=== PATIENT | female | born 1995 | race Two or more races ===

== ENCOUNTER 2019-10-17 22:04 | Emergency (ER) | payer OTHER ==
[2019-10-17 22:25] VITALS: BP 118/72; PULSE 72; TEMP 98; BMI 20.5
--- NOTE | 2019-10-17 22:28 | PDOC ---
History of Present Illness - General Chief Complaint: Lightheaded Stated Complaint: ABDOMINAL PAIN Time Seen by Provider: 10/17/19 22:26 History Source: Patient Exam Limitations: No Limitations - History of Present Illness Initial Comments: 10/17/19 22:27 Cecilia Hopper is a 24F with PMH asthma and depression on sertraline presenting with abdominal pain and vertigo. Yesterday patient felt well, but in the evening started feeling upset stomach. Today woke up late, didn't eat breakfast. 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 Dizziness worse when her eyes are open and has some photophobia with headache. Went home, was nauseated and vomited NBNB 3x. Never had these symptoms before. Denies tinnitis, vision changes. Has not had a BM in a few days, 1x urine output today. PSH multiple hernia repairs since childhood and a tummy tuck surgery. Started taking sertraline on Monday, did not take this AM, has not had a bad reaction in prior days. Smokes marijuana regularly, last this AM, has not had vomiting or dizziness related to use in the past. Denies fever/chills, C/D. LOWE described as frontal and slow onset, similar to prior LOWE. Poor urinary output, has not tolerated anything PO today. Denies sick contacts. Past History - Past Medical History Allergies/Adverse Reactions: Allergies Allergy/AdvReac Type Severity Reaction Status Date / Time No Known Allergies Allergy Verified 10/17/19 22:07 Home Medications: Ambulatory Orders Meclizine HCl [Antivert -] 12.5 mg PO TID #21 tablet 10/18/19 Meclizine HCl [Antivert -] 12.5 mg PO TID #21 tablet 10/18/19 COPD: No Psychiatric Problems: Yes - Psycho Social/Smoking Cessation Hx Smoking History: Never smoked Review of Systems - Review of Systems Able to Perform ROS?: Yes Constitutional: Yes: Loss of Appetite. No: Chills, Fever, Weakness HEENTM: No: Blurred Vision, Recent change in vision, Double Vision, Hearing Loss Respiratory: No: Symptoms reported Cardiac (ROS): No: Symptoms Reported ABD/GI: Yes: Nausea, Vomiting, Abdominal cramping. No: Constipated, Diarrhea : Yes: Other (poor urinary output) Musculoskeletal: No: Symptoms Reported Integumentary: No: Symptoms Reported Neurological: Yes: Headache (frontal) Psychiatric: Yes: Depression (on sertraline) Endocrine: No: Symptoms Reported Hematologic/Lymphatic: No: Symptoms Reported All Other Systems: Reviewed and Negative *Physical Exam - Vital Signs Last Vital Signs Temp Pulse Resp BP Pulse Ox 98 F 72 16 118/72 99 10/17/19 22:09 10/17/19 22:09 10/17/19 22:09 10/17/19 22:09 10/17/19 22:09 - Physical Exam General Appearance: Yes: Nourished, Appropriately Dressed, Mild Distress, Thin, Other (resting in bed in kylah position with hutchison up to cover eyes) HEENT: positive: EOMI (no nystagmus noted), KASHIF, Normal ENT Inspection, Normal Voice, Symmetrical, Photophobia, Hearing Grossly Normal. negative: Scleral Icterus (R), Scleral Icterus (L), Muffled/Hoarse voice Neck: positive: Trachea midline, Normal Thyroid, Supple. negative: Tender, Rigid, Lymphadenopathy (R), Lymphadenopathy (L) Respiratory/Chest: positive: Lungs Clear, Normal Breath Sounds. negative: Chest Tender, Respiratory Distress, Accessory Muscle Use, Labored Respiration, Crackles, Rales, Rhonchi, Stridor, Wheezing Cardiovascular: positive: Regular Rhythm, Regular Rate. negative: Murmur Gastrointestinal/Abdominal: positive: Normal Bowel Sounds, Tender (epigastric), Flat, Soft. negative: Organomegaly, Pulsatile Mass, Increased Bowel Sounds, Guarding, Rebound Musculoskeletal: positive: Normal Inspection. negative: CVA Tenderness, Vertebral Tenderness Extremity: positive: Normal Capillary Refill, Normal Inspection, Normal Range of Motion, Pelvis Stable. negative: Tender Integumentary: positive: Normal Color, Dry, Warm. negative: Clammy Neurologic: positive: perinatal educator II-XII NML intact, Fully Oriented, Alert, Normal Mood/ Affect, Normal Response, Motor Strength 5/5, Other (cerebellar exam: finger/ nose normal, heel/quiñonez normal, no nystagmus, no dysarthria, no dysdiadochokinesia, no truncal ataxia) ED Treatment Course - LABORATORY CBC & Chemistry Diagram: 10/17/19 23:00 10/17/19 23:00 Medical Decision Making - Medical Decision Making 10/17/19 22:27 Cecilia Hopper is a 24F with PMH asthma and depression on sertraline presenting with abdominal pain and vertigo. Vertigo with N/V is consistent with BPPV vs. Menieres, worse when patient's eyes open and when she sits up, no truncal ataxia or nystagmus. Posterior CVA unlikely, no risk factors or neuro deficits. Patient is afebrile, mild LOWE, low concern for encephalitis. Newly taking sertraline, concern for common adverse reaction. Also considering marijuana-induced nausea, but patient has not had these sx before when smoking. CMP CBC UA Serum Preg Mag/Phos Giving 1L NS, meclizine, Pepcid, Maalox for N/V with vertigo, Ofirmev for LOWE. 10/17/19 23:31 Labs unremarkable, test negative. 10/18/19 00:31 Patient ambulating without issue, is hungry, has no more vertigo. However, still has abd pain with hernia. Concerned for incarceration. Hernia is soft but tender and mobile. CTAP ordered with PO contrast. 10/18/19 04:34 CT shows no evidence of hernia, concern for an abscess. Patient examined, umbilical lump more consistent with asymptomatic cyst, patient not bothered by it, no fever or WBC elevation. Given 4mg Zofran, PO challenge passed with crackers and water. Stable for d/c home with PRN meclizine. Discharge - Discharge Information Problems reviewed: Yes Clinical Impression/Diagnosis: Vertigo Nausea & vomiting Qualifiers: Vomiting type: unspecified Vomiting Intractability: non-intractable Qualified Code(s): R11.2 - Nausea with vomiting, unspecified Condition: Stable Disposition: HOME - Admission No - Additional Discharge Information Prescriptions: Meclizine HCl [Antivert -] 12.5 mg PO TID #21 tablet Meclizine HCl [Antivert -] 12.5 mg PO TID #21 tablet - Follow up/Referral - Patient Discharge Instructions Patient Printed Discharge Instructions: DI for Vertigo Additional Instructions: Today you were evaluated for vertigo. Your blood labs show no electrolyte abnormalities, anemia, or infection. Your urine shows no infection. We gave you IV fluids, Pepcid, Maalox, and Meclizine for nausea and you felt better. We were worried about a hernia in your abdomen, and found that you do not have a hernia, but rather a cyst after your surgeries that is not a problem. Please follow-up with your primary doctor in the next 3 days for further care. If you continue to have dizziness while taking the sertraline, consider seeing your primary doctor for evaluation of an adverse reaction. Please stop smoking marijuana if it is causing you to feed nauseated. If you experience worsening nausea, vomiting, chest pain, fever, trouble breathing, or have any other new or concerning symptoms, please return to the emergency room. - Post Discharge Activity
--- NOTE | 2019-10-17 22:40 | PDOC ---
Attending Attestation - Resident Resident Name: Omar Mahan - ED Attending Attestation I have performed the following: I have examined & evaluated the patient, The case was reviewed & discussed with the resident, I agree w/resident's findings & plan, Exceptions are as noted - HPI HPI: 10/17/19 22:41 Ms. Oli Hopper is 24 yo F ho asthma and depression who presents to the ER with vertigo, nausea and vomiting Last night, she began to have abdominal discomfort/upset She was driving to the store and developed severe vertigo, worse with eyes open She had to loop puller her vehicle She has since had persistent nausea, vomiting, inability to tolerate po Pt has not eaten today, has voided once today No bowel movements, no gas No fevers or chills No ill contacts No vision changes No weakness or numbness Pt has had also a frontal headache associated with dizziness 10/17/19 23:58 - Physicial Exam PE: 10/17/19 22:40 GENERAL: The patient is in no acute distress, resting comfortably in bed. ENT: Ears normal, nares patent, oropharynx clear without exudates. Dry mucous membranes. NECK: Normal range of motion, supple LUNGS: Breath sounds equal, clear to auscultation bilaterally. No wheezes, and no crackles. HEART:Regular rate and rhythm, normal S1 and S2 without murmur, rub or gallop. ABDOMEN: Soft, non distended, periumbilical tenderness to palpation, no ventral hernia palpable Scarring noted of the umbilicus hypoactive bowel sounds. No CVA tenderness to palpation EXTREMITIES: Normal range of motion, no edema. NEUROLOGICAL: Cranial nerves II through XII grossly intact. Normal speech. No focal neurological deficits. No dysdiadokinesis, no dysmetria, no nystagmus Pt did not want to stand yet due to persistent dizziness SKIN: Warm, Dry, normal turgor, no rashes or lesions noted. 10/17/19 23:37 10/18/19 00:01 10/18/19 00:03 - Medical Decision Making 24 yo F presenting to the ER with a complaint of abdominal pain, vomiting, dizziness and vertigo DD is broad and includes Dizziness - peripheral vertigo, menier's disease, labrynthitis, BPPV GI symptoms - gastritis, gastroenteritis, SBO, ileus, cholelithiasis, pancreatitis 10/17/19 23:37 Laboratory Tests 10/17/19 23:00 WBC 6.2 Hgb 13.8 Hct 41.0 Plt Count 213 10/18/19 00:02 10/18/19 00:05 10/18/19 00:08 10/18/19 00:08 Laboratory Tests 10/17/19 10/17/19 23:00 23:00 BUN 10.9 Creatinine 0.7 Serum , Qual Negative Signed out to Dr. Bailon Pending CT and PO challenge
[2019-10-17] MEDS ORDERED: SODIUM CHLORIDE 0.9% 500 ML INFUS.BAG IV ONE (22:50)
[2019-10-17] MEDS ORDERED: FAMOTIDINE 20 MG/50 ML IVPB 20 MG/50 ML MG IVPB ONE ×2 (22:50→23:26)
[2019-10-17] MEDS ORDERED: MECLIZINE HCL 12.5 MG TABLET PO ONE (22:50)
[2019-10-17 23:16] LABS: BASO % 0.8 % (0-2.0); EOS % 0.2 % (0-4.5); HEMOGLOBIN 13.8 GM/dL (10.7-15.3); LYMPH % 21.7 % (8-40); MCH 32.2 pg (25.7-33.7); MCHC 33.6 g/dl (32.0-36.0); MEAN PLT VOLUME 10.3 fl (7.5-11.1); MONO % 4.6 % (3.8-10.2); NEUT % 72.7 % (42.8-82.8); PLATELET COUNT 213 K/MM3 (134-434); RBC 4.27 M/mm3 (3.60-5.2); RDW 13.2 % (11.6-15.6); WHITE BLOOD COUNT 6.2 K/mm3 (4.0-10.0)
[2019-10-17] MEDS ORDERED: MECLIZINE HCL 12.5 MG TABLET ONE (23:26)
[2019-10-17 23:44] LABS: ALBUMIN 4.2 g/dl (3.4-5.0); BILIRUBIN,TOTAL 0.4 mg/dL (0.2-1); BLOOD UREA NITROGEN 10.9 mg/dL (7-18); CALCIUM 9.6 mg/dL (8.5-10.1); CREATININE 0.7 mg/dL (0.55-1.3); MAGNESIUM 2.3 mg/dL (1.8-2.4); POTASSIUM 4.2 mmol/L (3.5-5.1); TOT PROT 8.1 g/dl (6.4-8.2)
[2019-10-18] MEDS ORDERED: ACETAMINOPHEN 1000 MG/100 ML VIAL (NON FORMULARY) IVPB ONE (00:01)
[2019-10-18] MEDS ORDERED: ACETAMINOPHEN 325 MG TABLET (FP) PO ONE (01:22)
[2019-10-18] MEDS ORDERED: ONDANSETRON 4 MG/2 ML VIAL IVPUSH ONE (03:24)
[2019-10-18] MEDS ORDERED: ONDANSETRON 4 MG/2 ML VIAL ONE (04:01)
== END 2019-10-18 04:45 | disposition home or self-care (01) ==
LOC: JER 22:04
PROC: 3E033GC Introduction of Other Therapeutic Substance into Peripheral Vein, Percutaneous Approach (ICD-10-PCS; principal; 2019-10-17)
DX: J45.909 Unspecified asthma, uncomplicated (principal); F99 Mental disorder, not otherwise specified
CPT/HCPCS: 36415; 74177-TC; 80053; 83735; 84100; 84703; 85025; 99283-25

== ENCOUNTER 2020-11-26 14:26 | Inpatient (IN) | payer OTHER ==
[2020-11-26] MEDS ORDERED: ACETAMINOPHEN 325 MG TABLET (FP) PO ONE (17:24)
[2020-11-26] MEDS ORDERED: ACETAMINOPHEN 325 MG TABLET (FP) ONE (17:33)
[2020-11-26] MEDS ORDERED: LACTATED RINGERS SOLUTION 1000 ML INFUS.BAG IV ONE (18:07)
[2020-11-26 18:09] LABS: BASO % 0.3 % (0-2.0); EOS % 0.7 % (0-4.5); HEMATOCRIT 36.2 % (32.4-45.2); HEMOGLOBIN 11.8 GM/dL (10.7-15.3); LYMPH % 25.1 % (8-40); MCH 31.2 pg (25.7-33.7); MCHC 32.7 g/dl (32.0-36.0); MEAN CELL VOLUME 95.5 fl (80-96); MEAN PLT VOLUME 11.7 fl (7.5-11.1); MONO % 8.6 % (3.8-10.2); NEUT % 65.3 % (42.8-82.8); RBC 3.79 M/mm3 (3.60-5.2); WHITE BLOOD COUNT 4.3 K/mm3 (4.0-10.0)
[2020-11-26 18:19] LABS: INR 1.15 (0.83-1.09); PROTHROMBIN TIME (PATIENT) 13.8 SEC (9.7-13.0)
[2020-11-26 18:22] LABS: ACTIVATED PTT 34.1 SECONDS (25.2-36.5)
[2020-11-26 18:42] LABS: POTASSIUM 4.5 mmol/L (3.5-5.1)
[2020-11-26 18:44] LABS: CALCIUM 8.9 mg/dL (8.5-10.1)
[2020-11-26 18:45] LABS: ALBUMIN 3.4 g/dl (3.4-5.0); BLOOD UREA NITROGEN 9.2 mg/dL (7-18)
[2020-11-26 18:48] LABS: CREATININE 0.6 mg/dL (0.55-1.3)
[2020-11-26 18:49] LABS: BILIRUBIN,TOTAL 0.2 mg/dL (0.2-1); TOT PROT 7.2 g/dl (6.4-8.2)
[2020-11-26 19:02] LABS: PLATELET COUNT 104 K/MM3 (134-434)
[2020-11-26] MEDS ORDERED: morphine CARPU-JECT 4 MG/1 ML DISP.SYRIN IVPUSH ONE (21:05)
[2020-11-26] MEDS ORDERED: CLINDAMYCIN 600MG PREMIX IVPB 600 MG/50 ML BAG IVPB ONE ×2 (21:13→21:25)
[2020-11-26] MEDS ORDERED: MORPHINE SULFATE 2 MG/ML VIAL ONE (21:25)
[2020-11-27] MEDS ORDERED: ACETAMINOPHEN 325 MG TABLET (FP) ONE ×2 (00:31→06:24)
[2020-11-27] MEDS: ACETAMINOPHEN 325 MG TABLET (FP) PO PRN ×2 (00:33→06:31)
[2020-11-27] MEDS ORDERED: CLINDAMYCIN 600MG PREMIX IVPB 600 MG/50 ML BAG IVPB ONE ×2 (04:35→08:34)
[2020-11-27] MEDS: CLINDAMYCIN 600MG PREMIX IVPB 600 MG/50 ML BAG IVPB SCH ×4 (04:48→22:21)
[2020-11-27] MEDS ORDERED: traMADol HCL 50 MG TABLET PO ONE (08:26)
[2020-11-27] MEDS ORDERED: traMADol HCL 50 MG TABLET ONE (08:34)
[2020-11-27 08:56] LABS: BASO % 0.7 % (0-2.0); EOS % 1.8 % (0-4.5); HEMATOCRIT 33.6 % (32.4-45.2); HEMOGLOBIN 11.3 GM/dL (10.7-15.3); LYMPH % 41.2 % (8-40); MCH 31.9 pg (25.7-33.7); MCHC 33.8 g/dl (32.0-36.0); MEAN CELL VOLUME 94.6 fl (80-96); MEAN PLT VOLUME 12.3 fl (7.5-11.1); MONO % 8.4 % (3.8-10.2); NEUT % 47.9 % (42.8-82.8); PLATELET COUNT 105 K/MM3 (134-434); RBC 3.55 M/mm3 (3.60-5.2); RDW 12.5 % (11.6-15.6); WHITE BLOOD COUNT 4.1 K/mm3 (4.0-10.0)
[2020-11-27 09:20] LABS: BLOOD UREA NITROGEN 7.2 mg/dL (7-18)
[2020-11-27 09:24] LABS: CREATININE 0.6 mg/dL (0.55-1.3)
[2020-11-27] MEDS ORDERED: LIDOCAINE 1%/EPI 1:100000 (20 ML MULTI DOSE VIAL) IJ ONE (11:44)
[2020-11-27] MEDS ORDERED: MORPHINE SULFATE 2 MG/ML VIAL ONE (19:56)
[2020-11-27] MEDS ORDERED: ONDANSETRON 4 MG/2 ML VIAL ONE (19:58)
[2020-11-27] MEDS: morphine CARPU-JECT 2 MG/1 ML DISP.SYRIN IVPUSH PRN (20:14)
[2020-11-28] MEDS ORDERED: MORPHINE SULFATE 2 MG/ML VIAL ONE (01:50)
[2020-11-28] MEDS: CLINDAMYCIN 600MG PREMIX IVPB 600 MG/50 ML BAG IVPB SCH ×2 (02:16→09:15)
[2020-11-28] MEDS: morphine CARPU-JECT 2 MG/1 ML DISP.SYRIN IVPUSH PRN (02:17)
[2020-11-28 06:18] VITALS: TEMP 98.1
[2020-11-28 08:50] VITALS: BP 100/71; PULSE 71
[2020-11-28] MEDS: HEPARIN NA (PORCINE) 5,000 UNITS/ML 1ML VIAL SQ SCH ×2 (09:16→09:24)
[2020-11-28] MEDS ORDERED: ACETAMINOPHEN 325 MG TABLET (FP) PO ONE (11:00)
[2020-11-28] MEDS ORDERED: oxyCODONE HCL 5 MG TABLET PO ONE (11:00)
[2020-11-28] MEDS ORDERED: NEOMYCIN/POLYMYXIN/BACITRACIN (TRIPLE ANTIBIOTIC) 28 GM OINTMENT TP PRN (11:01)
== END 2020-11-28 11:59 | disposition home or self-care (01) | DRG 383 ==
LOC: JER 14:26 → JERBED 21:39 → J6S 11-27 11:34 → J5WEST-2 11-27 19:03
PROVIDERS: ADMIT Hospitalist; ATTEND Student in an Organized Health Care Education/Training Program
PROC: 0J980ZX Drainage of Abdomen Subcutaneous Tissue and Fascia, Open Approach, Diagnostic (ICD-10-PCS; principal; 2020-11-27)
DX: L02.216 Cutaneous abscess of umbilicus (principal); Z20.822 Contact with and (suspected) exposure to COVID-19; L72.3 Sebaceous cyst
CPT/HCPCS: 36415; 74177-TC; 76705-TC; 80048; 80053; 84703; 85025; 85610; 85730; 86850; 86900; 86901; 87040; 87070; 87186; 87205; 99285-25; C9803; J1644; Q9967; U0003

== ENCOUNTER 2021-02-08 09:04 | Inpatient (IN) | payer OTHER ==
[2021-02-08 09:38] VITALS: BMI 23.8
[2021-02-08] MEDS ORDERED: MAG HYDROX/AL HYDROX/SIMETH 30 ML UNIT-DOSE CUP PO PRN (10:21)
[2021-02-08] MEDS ORDERED: MAGNESIUM HYDROX 2400MG/30ML ORAL SUSPENSION 30 ML CUP PO PRN (10:21)
[2021-02-08] MEDS ORDERED: ONDANSETRON *ODT* 4 MG TABLET SL PRN (10:21)
[2021-02-08] MEDS ORDERED: IBUPROFEN 400 MG TABLET (FP) PO PRN (10:21)
[2021-02-08] MEDS ORDERED: MAGNESIUM CITRATE 300 ML BOTTLE PO PRN (10:21)
[2021-02-08] MEDS ORDERED: ACETAMINOPHEN 325 MG TABLET (FP) PO PRN ×2 (10:21)
[2021-02-08] MEDS ORDERED: NALOXONE (NARCAN) HCL 4 MG/0.1 ML SPRAY NS PRN (10:21)
[2021-02-08] MEDS ORDERED: cloNIDine HCL 0.1 MG TABLET PO PRN (10:21)
[2021-02-08] MEDS ORDERED: BISMUTH SUBSALICYLATE 524 MG/30 ML UD PO PRN (10:21)
[2021-02-08] MEDS ORDERED: MENTHOL/PHENOL 1 EACH UD MM PRN (10:21)
[2021-02-08] MEDS ORDERED: METHADONE HCL 10 MG TABLET (FOR DETOX USE ONLY) PO ONE (10:30)
[2021-02-08] MEDS: PRENATAL VITAMINS W/ FOLIC ACID TABLET (FP) PO SCH (11:02)
[2021-02-08] MEDS: hydrOXYzine PAMOATE 25 MG CAPSULE (FP) PO SCH ×3 (14:30→21:55)
[2021-02-08 14:40] LABS: HEMATOCRIT 35.5 % (32.4-45.2); MCHC 33.8 g/dl (32.0-36.0); MEAN CELL VOLUME 94.7 fl (80-96); MEAN PLT VOLUME 10.8 fl (7.5-11.1); PLATELET COUNT 143 K/MM3 (134-434); RBC 3.75 M/mm3 (3.60-5.2); RDW 13.5 % (11.6-15.6); WHITE BLOOD COUNT 3.3 K/mm3 (4.0-10.0)
[2021-02-08 14:46] LABS: POTASSIUM 4.1 mmol/L (3.5-5.1)
[2021-02-08 14:48] LABS: CALCIUM 9.2 mg/dL (8.5-10.1)
[2021-02-08 14:49] LABS: ALBUMIN 3.6 g/dl (3.4-5.0); BLOOD UREA NITROGEN 11.8 mg/dL (7-18)
[2021-02-08 14:52] LABS: CREATININE 0.7 mg/dL (0.55-1.3)
[2021-02-08 14:53] LABS: BILIRUBIN,TOTAL 0.3 mg/dL (0.2-1)
[2021-02-08 14:54] LABS: TOT PROT 7.2 g/dl (6.4-8.2)
[2021-02-08 15:43] LABS: HIV INTERPRETATION NEGATIVE (NEGATIVE)
[2021-02-08] MEDS: MELATONIN 5 MG TABLETS PO PRN (21:55)
[2021-02-08] MEDS: METHOCARBAMOL 500 MG TABLET PO PRN (21:55)
[2021-02-08] MEDS: THIAMINE HCL 100 MG TABLET (FP) PO SCH (21:55)
[2021-02-08] MEDS ORDERED: MELATONIN 5 MG TABLETS PO SCH (22:00)
[2021-02-09] MEDS: hydrOXYzine PAMOATE 25 MG CAPSULE (FP) PO SCH ×5 (05:57→22:20)
[2021-02-09] MEDS ORDERED: METHADONE HCL 5 MG TABLET (FOR DETOX USE ONLY) ONE (09:02)
[2021-02-09] MEDS ORDERED: METHADONE HCL 10 MG TABLET (FOR DETOX USE ONLY) ONE (09:02)
[2021-02-09] MEDS: METHOCARBAMOL 500 MG TABLET PO PRN (09:15)
[2021-02-09] MEDS: PRENATAL VITAMINS W/ FOLIC ACID TABLET (FP) PO SCH (09:16)
[2021-02-09] MEDS ORDERED: METHADONE (DETOX) 20 MG, METHADONE (DETOX) 5 MG PO ONE (10:00)
[2021-02-09] MEDS: MELATONIN 5 MG TABLETS PO PRN (22:18)
[2021-02-09] MEDS: THIAMINE HCL 100 MG TABLET (FP) PO SCH (22:20)
[2021-02-10] MEDS: METHOCARBAMOL 500 MG TABLET PO PRN ×2 (01:35→22:08)
[2021-02-10] MEDS: hydrOXYzine PAMOATE 25 MG CAPSULE (FP) PO SCH ×5 (06:01→22:08)
[2021-02-10] MEDS: PRENATAL VITAMINS W/ FOLIC ACID TABLET (FP) PO SCH (09:41)
[2021-02-10] MEDS ORDERED: METHADONE HCL 10 MG TABLET (FOR DETOX USE ONLY) PO ONE (10:00)
[2021-02-10] MEDS: THIAMINE HCL 100 MG TABLET (FP) PO SCH (22:07)
[2021-02-10] MEDS: MELATONIN 5 MG TABLETS PO PRN (22:08)
[2021-02-11] MEDS: hydrOXYzine PAMOATE 25 MG CAPSULE (FP) PO SCH ×2 (05:35→10:15)
[2021-02-11 06:08] LABS: SARS-CoV-2 NAA Not Detected (Not Detected)
[2021-02-11] MEDS ORDERED: METHADONE HCL 5 MG TABLET (FOR DETOX USE ONLY) ONE (08:23)
[2021-02-11] MEDS ORDERED: METHADONE HCL 10 MG TABLET (FOR DETOX USE ONLY) ONE (08:24)
[2021-02-11] MEDS ORDERED: METHADONE (DETOX) 10 MG, METHADONE (DETOX) 5 MG PO ONE (10:00)
[2021-02-11] MEDS: PRENATAL VITAMINS W/ FOLIC ACID TABLET (FP) PO SCH (10:15)
[2021-02-11] MEDS: SUVOREXANT 10 MG TABLET PO PRN (22:04)
[2021-02-11] MEDS: THIAMINE HCL 100 MG TABLET (FP) PO SCH (22:05)
[2021-02-11] MEDS: hydrOXYzine PAMOATE 25 MG CAPSULE (FP) PO PRN (22:05)
[2021-02-11] MEDS: METHOCARBAMOL 500 MG TABLET PO PRN (22:06)
[2021-02-12] MEDS: hydrOXYzine PAMOATE 25 MG CAPSULE (FP) PO PRN (06:12)
[2021-02-12] MEDS ORDERED: METHADONE HCL 10 MG TABLET (FOR DETOX USE ONLY) PO ONE (10:00)
[2021-02-12] MEDS: PRENATAL VITAMINS W/ FOLIC ACID TABLET (FP) PO SCH (10:06)
[2021-02-12] MEDS: SUVOREXANT 10 MG TABLET PO PRN (21:59)
[2021-02-12] MEDS: THIAMINE HCL 100 MG TABLET (FP) PO SCH (22:01)
[2021-02-13] MEDS ORDERED: METHADONE HCL 5 MG TABLET (FOR DETOX USE ONLY) PO ONE (06:00)
[2021-02-13 09:36] VITALS: BP 101/67; PULSE 91; TEMP 97.1
[2021-02-13] MEDS: PRENATAL VITAMINS W/ FOLIC ACID TABLET (FP) PO SCH (10:12)
== END 2021-02-13 10:44 | disposition home or self-care (01) | DRG 773 ==
LOC: YASAS 09:04 → Y6N 10:18
PROVIDERS: ADMIT Allergy & Immunology; ATTEND Allergy & Immunology
PROC: HZ2ZZZZ Detoxification Services for Substance Abuse Treatment (ICD-10-PCS; principal; 2021-02-08)
DX: F11.23 Opioid dependence with withdrawal (principal); F12.20 Cannabis dependence, uncomplicated; F19.282 Other psychoactive substance dependence with psychoactive substance-induced sleep disorder; F19.24 Other psychoactive substance dependence with psychoactive substance-induced mood disorder; F32.9 Major depressive disorder, single episode, unspecified; D64.9 Anemia, unspecified; J45.909 Unspecified asthma, uncomplicated; R42 Dizziness and giddiness; Z91.5 Personal history of self-harm; Z91.410 Personal history of adult physical and sexual abuse; Z98.890 Other specified postprocedural states
CPT/HCPCS: 36415; 80053; 81025; 85027; 86780; 87389; 93005; 93010; C9803; Q0162; U0003; U0005

== ENCOUNTER 2022-11-22 13:20 | Inpatient (IN) | payer OTHER ==
[2022-11-22 14:18] VITALS: BMI 25.4
[2022-11-22] MEDS ORDERED: IBUPROFEN 400 MG TABLET (FP) PO PRN (14:43)
[2022-11-22] MEDS ORDERED: cloNIDine HCL 0.1 MG TABLET PO PRN (14:43)
[2022-11-22] MEDS ORDERED: BISMUTH SUBSALICYLATE 262 MG/15 ML BTL PO PRN (14:43)
[2022-11-22] MEDS ORDERED: NALOXONE HCL (KLOXXADO) 8 MG SPRAY NS PRN (14:43)
[2022-11-22] MEDS ORDERED: BENZOCAINE/MENTHOL (CHLORASEPTIC ) LOZENGE MM PRN (14:43)
[2022-11-22] MEDS ORDERED: ACETAMINOPHEN 325 MG TABLET (FP) PO PRN ×2 (14:43)
[2022-11-22] MEDS ORDERED: POLYETHYLENE GLYCOL (HEALTHYLAX) 3350 17 GM PACKET PO PRN (14:43)
[2022-11-22] MEDS ORDERED: methaDONE HCL 10 MG TABLET (FOR DETOX USE ONLY) PO ONE (14:43)
[2022-11-22] MEDS ORDERED: LOPERAMIDE HCL 2 MG CAPSULE PO PRN (14:43)
[2022-11-22] MEDS ORDERED: MAG HYDROX/AL HYDROX/SIMETH 30 ML UNIT-DOSE CUP PO PRN (14:43)
[2022-11-22] MEDS ORDERED: DICYCLOMINE HCL 10 MG CAPSULE PO PRN (14:43)
[2022-11-22] MEDS ORDERED: MAGNESIUM HYDROX 2400MG/30ML ORAL SUSPENSION 30 ML CUP PO PRN (14:43)
[2022-11-22] MEDS ORDERED: ONDANSETRON *ODT* 4 MG TABLET SL PRN (14:43)
[2022-11-22] MEDS ORDERED: methaDONE HCL 10 MG TABLET (FOR DETOX USE ONLY) ONE (15:51)
[2022-11-22] MEDS: PRENATAL VITAMINS W/ FOLIC ACID TABLET (FP) PO SCH (15:58)
[2022-11-22] MEDS ORDERED: ALBUTEROL SO4 HFA INHALER IH PRN (16:27)
[2022-11-22] MEDS ORDERED: MELATONIN 5 MG TABLETS PO SCH (22:00)
[2022-11-22] MEDS: METHOCARBAMOL 500 MG TABLET PO PRN (22:16)
[2022-11-22] MEDS: hydrOXYzine PAMOATE 25 MG CAPSULE (FP) PO PRN (23:03)
[2022-11-22] MEDS: THIAMINE HCL 100 MG TABLET (FP) PO SCH (23:20)
[2022-11-23 10:29] LABS: HEMATOCRIT 38.6 % (32.4-45.2); HEMOGLOBIN 12.6 GM/dL (10.7-15.3); MCH 30.7 pg (25.7-33.7); MCHC 32.6 g/dl (32.0-36.0); MEAN CELL VOLUME 94.2 fl (80-96); PLATELET COUNT 170 10^3/uL (134-434); RDW 13.6 % (11.6-15.6); WHITE BLOOD COUNT 4.3 K/mm3 (4.0-10.0)
[2022-11-23] MEDS: PRENATAL VITAMINS W/ FOLIC ACID TABLET (FP) PO SCH (10:49)
[2022-11-23] MEDS: METHOCARBAMOL 500 MG TABLET PO PRN ×3 (10:49→22:23)
[2022-11-23] MEDS: hydrOXYzine PAMOATE 25 MG CAPSULE (FP) PO PRN (10:51)
[2022-11-23 11:12] LABS: BLOOD UREA NITROGEN 8.8 mg/dL (7-18); CALCIUM 9.1 mg/dL (8.5-10.1)
[2022-11-23 11:13] LABS: ALBUMIN 3.4 g/dl (3.4-5.0)
[2022-11-23 11:16] LABS: CREATININE 0.7 mg/dL (0.55-1.3)
[2022-11-23 11:17] LABS: BILIRUBIN,TOTAL 0.5 mg/dL (0.2-1); TOT PROT 6.6 g/dl (6.4-8.2)
[2022-11-23] MEDS ORDERED: SUVOREXANT 10 MG TABLET PO PRN (22:00)
[2022-11-23] MEDS: MIRTAZAPINE 15 MG TABLET (FP) PO SCH (22:21)
[2022-11-23] MEDS: THIAMINE HCL 100 MG TABLET (FP) PO SCH (22:21)
[2022-11-23] MEDS: IBUPROFEN 600 MG TABLET (FP) PO PRN (22:23)
[2022-11-24] MEDS: hydrOXYzine PAMOATE 25 MG CAPSULE (FP) PO PRN (09:30)
[2022-11-24] MEDS: METHOCARBAMOL 500 MG TABLET PO PRN ×3 (09:30→22:10)
[2022-11-24] MEDS: PRENATAL VITAMINS W/ FOLIC ACID TABLET (FP) PO SCH (09:31)
[2022-11-24] MEDS ORDERED: methaDONE HCL 10 MG TABLET (FOR DETOX USE ONLY) PO ONE (10:00)
[2022-11-24] MEDS: MIRTAZAPINE 15 MG TABLET (FP) PO SCH (22:08)
[2022-11-24] MEDS: THIAMINE HCL 100 MG TABLET (FP) PO SCH (22:09)
[2022-11-24] MEDS: IBUPROFEN 600 MG TABLET (FP) PO PRN (22:10)
[2022-11-25] MEDS: METHOCARBAMOL 500 MG TABLET PO PRN ×3 (06:38→22:08)
[2022-11-25 09:46] VITALS: RESP 18
[2022-11-25] MEDS: PRENATAL VITAMINS W/ FOLIC ACID TABLET (FP) PO SCH (09:47)
[2022-11-25] MEDS: hydrOXYzine PAMOATE 25 MG CAPSULE (FP) PO PRN (09:49)
[2022-11-25] MEDS ORDERED: QUEtiapine FUMARATE 50 MG TABLET PO SCH (22:00)
[2022-11-25] MEDS: MIRTAZAPINE 15 MG TABLET (FP) PO SCH (22:07)
[2022-11-25] MEDS: THIAMINE HCL 100 MG TABLET (FP) PO SCH (22:08)
[2022-11-26] MEDS: METHOCARBAMOL 500 MG TABLET PO PRN (07:01)
[2022-11-26 09:22] VITALS: BP 129/87; PULSE 100; TEMP 97.7
[2022-11-26] MEDS ORDERED: methaDONE HCL 10 MG TABLET (FOR DETOX USE ONLY) PO ONE (10:00)
[2022-11-26] MEDS: PRENATAL VITAMINS W/ FOLIC ACID TABLET (FP) PO SCH (10:11)
== END 2022-11-26 10:35 | disposition home or self-care (01) | DRG 773 ==
LOC: YASAS 13:20 → Y6N 14:54 → Y3N 19:23
PROVIDERS: ADMIT Allergy & Immunology; ATTEND Surgery
PROC: HZ2ZZZZ Detoxification Services for Substance Abuse Treatment (ICD-10-PCS; principal; 2022-11-22)
DX: F11.23 Opioid dependence with withdrawal (principal); F13.20 Sedative, hypnotic or anxiolytic dependence, uncomplicated; F12.20 Cannabis dependence, uncomplicated; F19.24 Other psychoactive substance dependence with psychoactive substance-induced mood disorder; F32.9 Major depressive disorder, single episode, unspecified; D64.9 Anemia, unspecified; G47.00 Insomnia, unspecified; J45.909 Unspecified asthma, uncomplicated; Z28.310 Unvaccinated for COVID-19; Z28.9 Immunization not carried out for unspecified reason
CPT/HCPCS: 36415; 80053; 81025; 85027; 86780; C9803-CS; Q0162; U0003; U0005